=== PATIENT | female | born 1980 | race Caucasian/White ===

== ENCOUNTER → 2017-08-30 | Outpatient (CLI) | payer OTHER ==
--- NOTE | 2017-08-30 12:23 | XR ---
EXAMINATION TYPE: XR lumbar spine 2 or 3V DATE OF EXAM: 08/30/2017 COMPARISON: NONE HISTORY: Low back pain slipped on ice twisted TECHNIQUE: 3 view lumbar spine FINDINGS: Spina bifida occulta at S1 1 and L5 is present. There may be attempted sacralization of L5 on the left. There 5 lumbar-type vertebral bodies. The pedicles are intact. Disc heights are preserved. Vertebral body heights are preserved. Alignment is normal. IMPRESSION: 1. No acute osseous abnormality.
== END | disposition home or self-care (01) ==
LOC: RADXRMAIN 11:47
PROVIDERS: ATTEND Emergency Medicine
DX: S33.5XXA Sprain of ligaments of lumbar spine, initial encounter (principal)
CPT/HCPCS: 72100